=== PATIENT | male | born 1970 | race Two or more races ===

== ENCOUNTER 2017-01-27 12:42 | Outpatient (CLI) ==
[2017-01-27 12:54] LABS: BASOPHILS # (AUTO) 0.1 K/uL (0-0.2); BASOPHILS % (AUTO) 1.4 % (0.0-3.0); EOSINOPHILS # (AUTO) 0.4 K/ul (0.0-0.7); EOSINOPHILS % (AUTO) 5.4 % (0.0-7.0); HEMATOCRIT 44.2 % (42.0-52.0); HEMOGLOBIN 15.1 g/dl (14.0-18.0); IMMATURE GRANULOCYTE % (AUTO) 0.2 % (0.0-5.0); LYMPHOCYTES # (AUTO) 2.1 K/uL (0.60-3.4); LYMPHOCYTES % (AUTO) 26.7 (10.0-50.0); MEAN CORPUSCULAR HGB CONC 34.2 (31.8-35.4); MEAN CORPUSCULAR VOLUME 93.6 fl (80.0-94.0); MONOCYTES # (AUTO) 0.5 K/uL (0.4-2.0); MONOCYTES % (AUTO) 6.2 (0-10); NEUTROPHILS # (AUTO) 4.8 K/ul (2.0-6.9); NEUTROPHILS % (AUTO) 60.1; PLATELET COUNT 213 10^3/uL (140-440); RED BLOOD COUNT 4.72 10^6/ul (4.70-6.10); WHITE BLOOD COUNT 8.01 K/ul (4.2-10.2)
[2017-01-27 13:32] LABS: ALBUMIN 3.8 g/dL (3.4-5.0); ALBUMIN/GLOBULIN RATIO 1.23; ANION GAP 12.3; BILIRUBIN,TOTAL 0.23 mg/dL (0.00-1.20); BUN/CREATININE RATIO 9.3; CALCIUM 9.5 mg/dL (8.2-10.2); CHOL/HDL RATIO 4.3 (4.5-6.4); CREATININE 0.86 mg/dL (0.60-1.10); POTASSIUM 4.3 mmol/L (3.5-5.1); TOTAL PROTEIN 6.9 g/dL (6.4-8.2)
== END 2017-01-27 12:43 | disposition home or self-care (01) ==
LOC: LAB 12:42
PROVIDERS: ATTEND Nurse Practitioner Family
DX: R03.0 Elevated blood-pressure reading, without diagnosis of hypertension (principal); Z72.0 Tobacco use
CPT/HCPCS: 36415; 80053; 80061; 84443; 85025

== ENCOUNTER 2017-02-15 09:52 | Outpatient (CLI) ==
--- NOTE | 2017-02-15 12:59 | MRI ---
EXAM: MRI left upper arm/humerus without contrast. HISTORY: Pain left elbow and biceps muscle area. Injury over 1 year ago. Mainly elbow pain but bic eps hurts with flexion.. "Provider stated she wanted lower humerus for biceps muscle, not elbow MRI ", per report of the technologist.. TECHNIQUE: Using a coil on a high field strength magnet multiplanar multisequence MRI performed of t he left humerus along its mid to distal aspect. Proximal left humerus exclude from the field of view on all imaging sequences. Note this constitutes incomplete MR evaluation of the left shoulder as we ll as left elbow as well.. COMPARISON: MRI left elbow 11/07/2015. Two-view plain film examination left elbow 10/22/2015. FINDINGS: Visualized bone marrow signal intensity of the mid to distal left humerus shows no acute f racture, stress fracture or discrete lytic or blastic lesion. Physiologic amount of fluid left elbow joint. Course of the medial neurovascular bundle within normal limit in appearance. The muscle bulk of the anterior and posterior compartments of normal signal intensity. No discrete soft tissue mass or abno rmal fluid collection identified. The distal insertional biceps and brachialis tendons below the lef t elbow joint line incompletely evaluated on the current exam. No full-thickness disruption suspecte d. Distal triceps insertion intact. No olecranon bursitis.. IMPRESSION: No acute fracture/stress fracture mid to distal left humerus. No acute muscle strain identified. The distal insertional biceps and brachialis tendons below the left elbow joint line incompletely yonatan luated on the current exam. No full-thickness disruption suspected.
== END 2017-02-15 09:53 | disposition home or self-care (01) ==
LOC: RAD 09:52
PROVIDERS: ATTEND Nurse Practitioner Family
DX: M79.602 Pain in left arm (principal); G89.29 Other chronic pain; R20.0 Anesthesia of skin; R29.898 Other symptoms and signs involving the musculoskeletal system; R20.2 Paresthesia of skin
CPT/HCPCS: 73218